=== PATIENT | female | born 1945 | race African-American/Black ===

== ENCOUNTER 2017-09-17 00:21 | Observation (INO) | payer OTHER, BC ==
[~2017-09-17] VITALS: Ht 160 cm; Wt 68.3 kg
[~2017-09-17 00:21] MED LIST: ADVAIR; ADVAIR 250/501 DISK IH; ASPIR-TRIN325 M1 PO; BENTYL10 MG PO; BP MED; Calan SR,Covera HS,I PO; Dyazide, Maxzide 37. PO; LEVOTHYROID; LEVOTHYROXINE100 MCG PO; Levothroid,Synthroid PO; NORCO 5/3251 TABLET PO; PROAIR HFA8.5 GM IH; RANITIDINE; RANITIDINE HCL150 MG; TRIAMTERENE-HC1 EAC1; Tylenol Regular Stre PO; ULTRAM50 MG PO; VALIUM5 MG PO; VERAPAMIL HCL240 MG PO; Zantac PO
[2017-09-17 00:45] LABS: HEMATOCRIT 37.3 % (36.0-46.0); HEMOGLOBIN 12.4 G/DL (11.9-15.5); MCH 27.7 PG (29.0-34.0); MCHC 33.2 G/DL (30.0-36.0); MCV 83.3 FL (83-99); PLATELET COUNT 349 K/uL (156-360); RBC DIS.WIDTH-SD 39.4 % (39-53); RED BLOOD COUNT 4.48 M/uL (3.80-5.20); WHITE BLOOD COUNT 11.5 K/uL (4.1-10.2)
[2017-09-17 00:53] LABS: ALBUMIN 4.4 g/dL (3.2-4.8)
[2017-09-17 00:53] LABS: APPEARANCE CLEAR ((CLEAR)); BILIRUBIN NEGATIVE; BLOOD NEGATIVE; COLOR YELLOW ((YELLOW)); GLUCOSE (STRIP) NEGATIVE; KETONES NEGATIVE; LEUKOCYTES NEGATIVE; NITRITE NEGATIVE; PROTEIN (STRIP) NEGATIVE; SPECIFIC GRAVITY 1.015 (1.000-1.030); UCUL ADDED? NO
[2017-09-17 00:54] LABS: CHLORIDE 99 mEq/L (99-109); SODIUM 139 mEq/L (136-147)
[2017-09-17 00:56] LABS: GLUCOSE 135 mg/dL (70-99); TOTAL PROTEIN 8.4 g/dL (6.4-8.3)
[2017-09-17 00:58] LABS: TOTAL BILIRUBIN 0.5 mg/dL (0.0-1.0)
[2017-09-17 00:59] LABS: ALKALINE PHOSPHATASE 71 IU/L (3-129)
[2017-09-17 01:00] LABS: GFR ESTIMATE (CALCULATED) > 59 mL/min/
[2017-09-17 01:01] LABS: AST (GOT) 17 IU/L (2-34); UREA NITROGEN (BUN) 17 mg/dL (9-23)
[2017-09-17 01:02] LABS: ALT (GPT) 11 IU/L (3-49)
[2017-09-17 01:03] LABS: LIPASE 38 U/L (1.0-51.0)
[2017-09-17 07:58] VITALS: BP 168/71
[2017-09-17 10:37] LABS: TROP-I INTERPRETATION NEGATIVE; TROPONIN-I < 0.01 ng/mL (0.0-0.30)
[2017-09-17 12:19] VITALS: BP 144/62
[2017-09-17 14:46] LABS: TROP-I INTERPRETATION NEGATIVE; TROPONIN-I 0.06 ng/mL (0.0-0.30)
[2017-09-17 15:51] VITALS: BP 145/65
[2017-09-17 18:53] VITALS: BP 137/61
[2017-09-17 20:36] LABS: TROP-I INTERPRETATION NEGATIVE; TROPONIN-I < 0.01 ng/mL (0.0-0.30)
[2017-09-17 23:58] VITALS: BP 111/53
[2017-09-18 04:20] VITALS: BP 128/59
[2017-09-18 05:24] LABS: BASOPHIL (%) 0.1 % (0-1); EOSINOPHIL (%) 0.3 % (0-5); HEMATOCRIT 32.5 % (36.0-46.0); HEMOGLOBIN 10.5 G/DL (11.9-15.5); IMMATURE GRANULOCYTE (%) 0.3 % (0.0-0.7); LYMPHOCYTE COUNT 1.4 K/uL (1.0-2.8); MCH 26.8 PG (29.0-34.0); MCHC 32.3 G/DL (30.0-36.0); MCV 82.9 FL (83-99); MONOCYTE (%) 9.2 % (3-12); NEUTROPHIL (%) 77.1 % (45-76); PLATELET COUNT 279 K/uL (156-360); RBC DIS.WIDTH-SD 39.4 % (39-53); RED BLOOD COUNT 3.92 M/uL (3.80-5.20); WHITE BLOOD COUNT 10.4 K/uL (4.1-10.2)
[2017-09-18 05:53] LABS: ALBUMIN 3.3 G/DL (3.2-4.8); ALKALINE PHOSPHATASE 46 IU/L (3-129); ALT (GPT) 9 IU/L (3-49); AST (GOT) 14 IU/L (2-34); CHLORIDE 98 MEQ/L (99-109); GFR ESTIMATE (CALCULATED) > 59 mL/min/; GLUCOSE 108 mg/dL (70-99); POTASSIUM 3.4 MEQ/L (3.7-5.4); SODIUM 137 MEQ/L (136-147); TOTAL BILIRUBIN 0.6 MG/DL (0.0-1.0); TOTAL PROTEIN 6.9 G/DL (6.4-8.3); UREA NITROGEN (BUN) 12 mg/dL (9-23)
[2017-09-18 07:30] VITALS: BP 122/73
[2017-09-18 11:51] VITALS: BP 130/66
[2017-09-18 15:24] VITALS: BP 131/61
[2017-09-18 20:00] VITALS: BP 137/63
[2017-09-18 23:38] VITALS: BP 135/65
[2017-09-19 04:15] VITALS: BP 130/60
[2017-09-19 07:37] VITALS: BP 132/60
[2017-09-19] MEDS ORDERED: TORADOL10 MG PO (09:51)
[2017-09-19 10:16] LABS: HEMOGLOBIN 11.8 G/DL (11.9-15.5); MCH 26.9 PG (29.0-34.0); MCHC 31.9 G/DL (30.0-36.0); MCV 84.5 FL (83-99); RBC DIS.WIDTH-CV 12.8 % (11.8-14.6); RBC DIS.WIDTH-SD 38.9 % (39-53); RED BLOOD COUNT 4.38 M/uL (3.80-5.20); WHITE BLOOD COUNT 6.9 K/uL (4.1-10.2)
[2017-09-19 10:17] LABS: PLATELET COUNT 366 K/uL (156-360)
[2017-09-19] MEDS ORDERED: LEVAQUIN750 MG PO (10:26)
[2017-09-19 10:43] LABS: CHLORIDE 100 MEQ/L (99-109); CREATININE 0.8 MG/DL (0.6-1.3); GFR ESTIMATE (CALCULATED) > 59 mL/min/; GLUCOSE 106 mg/dL (70-99); POTASSIUM 3.7 MEQ/L (3.7-5.4); SODIUM 140 MEQ/L (136-147); UREA NITROGEN (BUN) 10 mg/dL (9-23)
[2017-09-19 11:05] VITALS: BP 127/60
[2017-09-19] MEDS ORDERED: LIDOCARE1 EACH TP (12:06)
== END 2017-09-19 13:57 | disposition home or self-care (01) ==
LOC: EME 00:21 → 4SOUTH 05:53 → EDOF 05:53 → ENRESERV 05:54 → 4SOUTH 07:18
PROVIDERS: Hospitalist; Physician Assistant Medical
DX: J18.9 Pneumonia, unspecified organism (principal); R07.89 Other chest pain; R09.02 Hypoxemia; J90 Pleural effusion, not elsewhere classified; J45.909 Unspecified asthma, uncomplicated; D68.9 Coagulation defect, unspecified; I10 Essential (primary) hypertension; E03.9 Hypothyroidism, unspecified; E78.00 Pure hypercholesterolemia, unspecified; Z96.653 Presence of artificial knee joint, bilateral; Z87.891 Personal history of nicotine dependence
CPT/HCPCS: 71045; 71275; 74176; 74177; 76705; 78227; 80048; 80053; 81003; 83605; 83690; 84484; 85025; 85027; 85379; 87040; 87449; 93005; 94010; 94640; 94640 76; 99202; 99281; 99284; A9537; G0378; J0696; J1650; J1885; J1956; J2765; J2805; J3010; J7030; J7070